=== PATIENT | female | born 1975 | race Caucasian/White ===

== ENCOUNTER 2017-11-23 10:16 | Outpatient (CLI) | payer BC ==
[2017-11-23 11:29] LABS: BHCG - Serum Negative (NEGATIVE); Pregs Control Background? CLEAR/WHITE (CLR/WHITE); Pregs Control Bar Appear? YES (CONTROL BAR)
== END 2017-11-23 10:17 | disposition home or self-care (01) ==
LOC: LABBT 10:16
PROVIDERS: ATTEND Surgery
DX: Z01.818 Encounter for other preprocedural examination (principal); K43.9 Ventral hernia without obstruction or gangrene
CPT/HCPCS: 84703

== ENCOUNTER 2017-11-29 07:25 | Day surgery (SDC) | payer BC ==
[2017-11-23 10:34] VITALS: BMI 34.2
[2017-11-29] MEDS ORDERED: Midazolam HCl 2 mg/2 ml Vial ONE (08:31)
[2017-11-29] MEDS ORDERED: Bupivacaine/Epinephrine 0.25% 30 ML VIAL ONE (08:50)
[2017-11-29] MEDS ORDERED: Fentanyl 100 MCG/2 ML VIAL ONE ×2 (08:58→10:08)
[2017-11-29] MEDS ORDERED: Levofloxacin 500 mg/D5W 100 ml Premix Bag ONE (08:59)
[2017-11-29] MEDS ORDERED: HYDROcodone/Acetaminophen 5/325 mg Tablet ONE (10:40)
[2017-11-29] MEDS ORDERED: Dexamethasone 20 MG/5 ML VIAL ONE (13:27)
[2017-11-29] MEDS ORDERED: PROPOFOL 200 MG/20 ML VIAL ONE (13:27)
[2017-11-29] MEDS ORDERED: Ondansetron HCl/PF 4 MG/2 ML Vial ONE (13:27)
[2017-11-29] MEDS ORDERED: Ketorolac Tromethamine 30 MG/ML VIAL ONE (13:27)
--- NOTE | 2017-11-30 13:20 | OP ---
DATE OF PROCEDURE: 11/29/2017 PREOPERATIVE DIAGNOSIS: Ventral hernia. POSTOPERATIVE DIAGNOSIS: Ventral hernia. PROCEDURE: Ventral hernia repair with mesh, Ventralex ST small 4 cm. SURGEON: Ty Nuñez M.D. ANESTHESIA: General. ESTIMATED BLOOD LOSS: Minimal. COMPLICATIONS: None. SPECIMEN: None. TECHNIQUE: The patient was taken to the operating room and placed supine on the table. After genera l anesthetic was obtained, the abdomen was prepped and draped in a sterile fashion. Over the hernia in the upper midline abdomen a vertical incision was made. Cautery was used to dissect down to the h ernia sac. The hernia sac dissected all the way back to the fascia. The incarcerated fat was able t o be reduced back into the preperitoneal space. Preperitoneal space was bluntly dissected through th e defect using a wet unraveled Ray-Breann. The small Ventralex ST mesh brought into the sterile field. The underlay is placed in the preperitoneal space. The tails are pulled out laterally. A U-stitch of permanent braided sutures used to affix the tails of the mesh to the fascia laterally. The fascia was closed loosely over the mesh. The wound is irrigated. The tails were cut at the level of the f ascia. Local anesthetic is applied. The wound was closed using 3-0 Vicryl, 4-0 Monocryl, and Dermab ond. The patient en route to recovery in stable condition. All instrument counts, needle counts, la p counts are correct.
== END 2017-11-29 11:40 | disposition home or self-care (01) ==
LOC: SDC 07:25
PROVIDERS: ATTEND Surgery
PROC: 0WUF0JZ Supplement Abdominal Wall with Synthetic Substitute, Open Approach (ICD-10-PCS; principal; 2017-11-29)
DX: K43.9 Ventral hernia without obstruction or gangrene (principal); F32.9 Major depressive disorder, single episode, unspecified; F98.8 Other specified behavioral and emotional disorders with onset usually occurring in childhood and adolescence; Z79.899 Other long term (current) drug therapy
CPT/HCPCS: 96374; J1100; J1885; J1956; J2250; J2405; J2704; J3010

== ENCOUNTER 2020-01-09 08:51 | Outpatient (CLI) | payer BC | END 2020-01-09 08:52 | disposition home or self-care (01) | LOC: DTY/OP 08:51 | PROVIDERS: ATTEND Family Medicine | DX: E78.5 Hyperlipidemia, unspecified (principal); R73.03 Prediabetes | CPT/HCPCS: 97802 ==

== ENCOUNTER 2021-11-05 17:00 | Outpatient (CLI) | payer BC | END 2021-11-05 17:01 | disposition home or self-care (01) | LOC: SLEEPLAB 17:00 | PROVIDERS: ATTEND Family Medicine | DX: G47.33 Obstructive sleep apnea (adult) (pediatric) (principal); G47.00 Insomnia, unspecified; R06.83 Snoring; K21.9 Gastro-esophageal reflux disease without esophagitis; F32.9 Major depressive disorder, single episode, unspecified; F98.8 Other specified behavioral and emotional disorders with onset usually occurring in childhood and adolescence | CPT/HCPCS: 95800 ==